=== PATIENT | female | born 1950 | race Caucasian/White ===

== ENCOUNTER 2017-07-23 06:16 | Day surgery (SDC) | payer MEDICARE, OTHER ==
[~2017-07-23] VITALS: Ht 160 cm; Wt 78.9 kg
[~2017-07-23 06:16] MED LIST: AMBIEN CR6.25 MG PO; CALCIUM600 MG PO; RANITIDINE HCL75 MG PO; VITAMIN D1000 UNI1 PO; ZYRTEC10 MG PO
--- NOTE | 2017-07-23 08:29 | NUR ---
07/23/17 0829 Allie Mejia 0756 PT ARRIVED IN PACU AWAKE TALKING TO STAFF. 0800 SIPPING ON WATER. 0810 PT GETTING DRESSED. 0817 TO DS TO WAIT FOR RIDE. CALL LITE AND COFFEE GIVEN.
--- NOTE | 2017-07-23 10:49 | OR ---
[facility] [address], [place] [address] Signed DATE OF OPERATION: 07/23/2017 SURGEON: Celsa Jain MD PREOPERATIVE DIAGNOSES: 1. Screening. 2. Diverticulosis. 3. Hemorrhoids. POSTOPERATIVE DIAGNOSES: 1. Minimal to moderate pandiverticulosis. 2. Minimal internal hemorrhoids. 3. A 4 mm polyp at 10 cm. PROCEDURE: Colonoscopy with hot biopsy. ESTIMATED BLOOD LOSS: None. INDICATIONS: Marry is a 66-year-old female, who presented for a followup screening colonoscopy. Her previous colonoscopy revealed some diverticulosis along with internal hemorrhoids. I met with Marry in the office and I gave her a pamphlet on colonoscopy. We discussed the nature of the test along with the risks including, but not limited to, gas bloating, crampy abdominal pain, bleeding, perforation, requiring surgery, and missed diagnosis. We also discussed the need for IV conscious sedation. She had expressed understanding and wished to proceed. She does drink a few beers each day and so we discussed the idea of Versed and fentanyl versus propofol. She wanted to go ahead and proceed with standard Versed and fentanyl. PROCEDURE NOTE: Marry was taken into our endoscopy suite and placed in the left lateral decubitus position. She was given 11 mg of Versed and 200 mcg of fentanyl to cover her case. Fortunately, she is very easy to scope from a technical standpoint. Her scope did not take very long, as she was wide awake and talking to us as we brought the scope out of the rectum. A digital rectal exam had been performed and this was unremarkable. The adult colonoscope had been inserted and advanced all the way around into the cecum under direct visualization without difficulty. Her prep was quite good. One could easily see the ileocecal valve in the cecum. The scope was then slowly withdrawn. She does have Electronically Signed By: CELSA JAIN MD 07/23/17 1049 PATIENT NAME: MARRY PUENTE OPERATIVE REPORT DATE OF : 50 PHYSICIAN: CELSA JAIN MD REPORT #: [id number] REPORT IS CONFIDENTIAL AND NOT TO BE RELEASED WITHOUT AUTHORIZATION [facility] [address], [place] [address] Signed minimal to moderate pandiverticulosis. They were moderate in size, minimal to moderate in number, and scattered about. Back in the rectum at 10 cm, there was a tiny 4 mm polyp, which we removed with a hot biopsy forceps. Upon retroflexion of the scope, she has a little bit internal hemorrhoid tissue with some skin tags. After this, the gas was suctioned out and the colonoscope removed. Marry tolerated the procedure quite well. RECOMMENDATIONS: I will see Marry back in my office in 7 to 14 days to review her results. MD SALONI Pabon/EDYTA /[id number] cc: TAYA Ware Electronically Signed By: CELSA JAIN MD 07/23/17 1049 PATIENT NAME: MARRY PUENTE OPERATIVE REPORT DATE OF : 50 PHYSICIAN: CELSA JAIN MD REPORT #: [id number] REPORT IS CONFIDENTIAL AND NOT TO BE RELEASED WITHOUT AUTHORIZATION
== END 2017-07-23 08:17 | disposition home or self-care (01) ==
LOC: DS 06:16 → OPS 06:16 → DS 06:45 → OPS 08:17
PROVIDERS: Colon & Rectal Surgery
PROC: 0DBP8ZX Excision of Rectum, Via Natural or Artificial Opening Endoscopic, Diagnostic (ICD-10-PCS; principal; 2017-07-23 06:45)
DX: Z12.11 Encounter for screening for malignant neoplasm of colon (principal); K62.1 Rectal polyp; K57.30 Diverticulosis of large intestine without perforation or abscess without bleeding; K64.8 Other hemorrhoids; Z90.49 Acquired absence of other specified parts of digestive tract; Z90.89 Acquired absence of other organs; Z98.890 Other specified postprocedural states; Z79.899 Other long term (current) drug therapy
CPT/HCPCS: 99153; G0500; J2250; J3010; J7120

== ENCOUNTER 2020-09-15 06:30 | Day surgery (SDC) | payer MEDICARE, OTHER ==
[~2020-09-15] VITALS: Ht 160 cm; Wt 77.3 kg
--- NOTE | 2020-09-15 07:50 | NUR ---
09/15/20 8010 [address] Acuna 4452-PATIENT ARRIVED TO PACU ON 2L NC RR EVEN. PATIENT AWAKE DENIES PAIN OR NAUSEA ABDOMEN SOFT. IVF INFUSING.
--- NOTE | 2020-09-15 09:21 | OR ---
[facility] [address] [place], [place] [address] Signed DATE OF OPERATION: 09/15/2020 SURGEON: Celsa Jain MD PREOPERATIVE DIAGNOSES: 1. Proximal esophageal dysphagia. 2. Mother and brother with a history of esophageal dilations. POSTOPERATIVE DIAGNOSES: 1. Proximal esophageal stricture. 2. Mild gastroduodenitis. PROCEDURES: EGD with CLOtest and biopsies of the pyloric bulb and antrum along with dilation (54-Senegalese). ESTIMATED BLOOD LOSS: None. 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 Pills and small solids gave her the most trouble. Usually liquids help her to get things down. She told me her mother and brother both have had esophageal dilations for reasons she cannot recall. She cannot recall any cancer in her family. She had been to her primary care provider. She was asked to see me with respect to the above. She has already been through a colonoscopy back in 2018 with myself. Consequently, she understand endoscopy well. She understands there is risk including, but not limited to gas bloating, crampy abdominal pain, bleeding, perforation requiring surgery, and missed diagnosis. She also recalls the need for IV conscious sedation. In the meantime, we did send her for a barium swallow. 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 She also presbyesophagus, but no obvious hiatal hernia or acid reflux. Consequently, we also discussed dilation with our Savary dilators. She had expressed understanding and wished to proceed. PROCEDURE NOTE: Marry was taken into our endoscopy suite and placed in the supine semi-recumbent position. She was given IV sedation with 5 mg of Versed and 150 mcg of fentanyl. A bite block was utilized for the case. The posterior oropharynx was anesthetized with Hurricaine spray. The adult gastroscope was then introduced and advanced under direct Electronically Signed By: CELSA JAIN MD 09/15/20 0921 PATIENT NAME: MARRY PUENTE OPERATIVE REPORT DATE OF : 50 REPORT #: [id number] PHYSICIAN: CELSA JAIN MD PCP: DEBRA LOUIE PA-C REPORT IS CONFIDENTIAL AND NOT TO BE RELEASED WITHOUT AUTHORIZATION [facility] [address] [place], [place] [address] Signed visualization of the camera without difficulty. There was ever so slight sensation of resistance as the camera went through the proximal esophagus, but then it traveled after that quite nicely. We went out into the third portion of the duodenum. The duodenum was unremarkable. The pyloric channel showed some very mild patchy erythematous changes along with the stomach as well. We took biopsies of the pyloric bulb and antrum for pathologic review. We took an additional biopsy from the antrum for CLOtest. We could see the patchiness in the stomach throughout the entire stomach. Upon retroflexion of scope, we really could not appreciate any obvious hiatal hernia. There was no gastric or esophageal varices. The scope was withdrawn up through the area of the GE junction, which was compliant without stricture. Very minimal irritation around the Z-line. No Robbins's mucosa. No distal middle or upper esophagitis. Again, the scope was traveling quite nicely to the proximal esophagus. After this, we passed a wire through the scope and removed her bite block. The well lubricated 54-Senegalese Savary dilator was passed over the wire and we felt the resistance as we came through the proximal esophagus. We were able to pass the dilator up to about 40 cm. Consequently, we probably did not dilate the GE junction. However, there was quite a bit of resistance as it went through the upper esophagus and we felt that was the area of concern and therefore, the dilator was then removed along with the wire. The adult bite block was placed once again and the adult gastroscope was introduced and we went down through the proximal esophagus about into the stomach itself. The stomach was unremarkable and we went back up through the esophagus. Again, the distal middle or esophagus were unremarkable. Then, up 15 cm from the incisors, we could see where the mucosa was broke from the dilation. This is the area that is consistent with the barium swallow and her clinical findings. There was no active bleeding. After this, the scope was completely withdrawn. Marry told that she tolerated procedure quite well. RECOMMENDATIONS: I will see Marry back in my office in 7 to 14 days to review her results. She is not to have any aspirin or NSAIDs for one week. She is to be on a soft diet for one week and then advance as tolerated. She has expressed understanding and agrees to above plan. Celsa Jain MD ALB/SHASHIL /[id number] Electronically Signed By: CELSA JAIN MD 09/15/20 0921 PATIENT NAME: MARRY PUENTEA OPERATIVE REPORT DATE OF : 50 REPORT #: [id number] PHYSICIAN: CELSA JAIN MD PCP: DEBRA LOUIE PA-C REPORT IS CONFIDENTIAL AND NOT TO BE RELEASED WITHOUT AUTHORIZATION [address] [place], [place] [address] Signed cc: Debra Jain MD Copies: CELSA JAIN MD ~ Electronically Signed By: CELSA JAIN MD 09/15/20 0921 PATIENT NAME: MARRY PUENTE OPERATIVE REPORT DATE OF : 50 REPORT #: [id number] PHYSICIAN: CELSA JAIN MD PCP: DEBRA LOUIE PA-C REPORT IS CONFIDENTIAL AND NOT TO BE RELEASED WITHOUT AUTHORIZATION
--- NOTE | 2020-09-16 13:53 | PATH ---
[facility] [address] [place] [place] [address] Signed SPECIMEN(S): A DUODENAL BULB SPECIMEN(S): B ANTRUM SPECIMEN SOURCE: A. DUODENAL BULB B. ANTRUM CLINICAL HISTORY: Dysphagia. MICROSCOPIC DESCRIPTION: Histologic sections of all submitted blocks are examined by light microscopy. These findings, together with the gross examination, support the pathologic diagnosis. FINAL PATHOLOGIC DIAGNOSIS: A. Duodenum, bulb, biopsy: - Duodenal mucosa with peptic injury. B. Stomach, antrum, biopsy: - Gastric antral mucosa with mild chronic inactive gastritis. - Negative for Helicobacter pylori with HE stains. BRP:cml:C2NR GROSS DESCRIPTION: Two specimens are received in two containers, labeled "VC." A. The specimen, labeled "VC, duodenum biopsy," is received in formalin and consists of one verma soft tissue fragment that measures 0.2 cm in greatest dimension. The specimen is entirely submitted in cassette (A1). B. The specimen, labeled "VC, antrum biopsy," is received in formalin and consists of one verma soft tissue fragment that measures 0.2 cm in greatest dimension. The specimen is entirely submitted in cassette (B1). JS (under the direct supervision of a pathologist) The Gross Description was prepared using a voice recognition system. The report was reviewed for accuracy; however, sound-alike word errors, addition and/or deletions may occur. If there is any question about this report, please contact Client Services. PERFORMING LABORATORY: The technical component was performed by [employer], [address] [place] [id number] ([employer]: Paola Yuan MD; CLIA# [id number]). PATIENT NAME: BREANNA PUENTE PATHOLOGY DATE OF : 50 REPORT #: [id number] PHYSICIAN: SUMA CRAVEN PCP: DEBRA LOUIE PA-C REPORT IS CONFIDENTIAL AND NOT TO BE RELEASED WITHOUT AUTHORIZATION [facility] [address] [place], [place] [address] Signed Professional interpretation was performed by [employer] [facility], [address] [address] (CLIA# [id number]). Diagnostician: Wilbur Jesus MD Pathologist Electronically Signed 09/16/2020 Copies: ~ PATIENT NAME: BREANNA PUENTE PATHOLOGY DATE OF : 50 REPORT #: [id number] PHYSICIAN: SUMA CRAVEN PCP: DEBRA LOUIE PA-C REPORT IS CONFIDENTIAL AND NOT TO BE RELEASED WITHOUT AUTHORIZATION
== END 2020-09-15 09:05 | disposition home or self-care (01) ==
LOC: DS 06:30 → OPS 06:30 → DS 06:45 → OPS 09:05
PROVIDERS: ATTEND Colon & Rectal Surgery
PROC: 0D758ZZ Dilation of Esophagus, Via Natural or Artificial Opening Endoscopic (ICD-10-PCS; 2020-09-15)
PROC: 0DB68ZZ Excision of Stomach, Via Natural or Artificial Opening Endoscopic (ICD-10-PCS; principal; 2020-09-15 06:45)
DX: K22.2 Esophageal obstruction (principal); K29.90 Gastroduodenitis, unspecified, without bleeding; K22.8 Other specified diseases of esophagus; F51.01 Primary insomnia; Z83.79 Family history of other diseases of the digestive system; Z88.8 Allergy status to other drugs, medicaments and biological substances; Z87.891 Personal history of nicotine dependence
CPT/HCPCS: 86677; 99153; G0500; J2250; J3010; J7121